=== PATIENT | male | born 1985 | race Caucasian/White ===

== ENCOUNTER 2018-06-19 04:06 | Emergency (ER) | payer SELFPAY ==
[~2018-06-19] VITALS: Ht 175.3 cm; Wt 77.1 kg
--- NOTE | 2018-06-19 04:06 | NUR ---
32/M BIBA W C/O PANIC ATTACK X 1HOUR SLABBER. STATES " I USUALLY TAKE KLONOPIN BUT I DIDNT HAVE ANY AT MY MOM'S HOUSE". GCS15, AOX4. DENIES N/V/D; SKIN IS PINK/WARM/DRY; AAOX4 WITH EVEN AND STEADY GAIT; LUNGS CLEAR BL; ; PT DENIES ANY FEVER, CP, SOB, OR COUGH AT THIS TIME; PATIENT STATES PAIN OF 0/10 AT THIS TIME; VSS; PATIENT POSITIONED FOR COMFORT; HOB ELEVATED; BEDRAILS UP X2; BED DOWN. ER MD MADE AWARE OF PT STATUS. PHM: PANIC ATTACKS
[2018-06-19 04:10] VITALS: BP 131/69
--- NOTE | 2018-06-19 04:19 | NUR ---
Dr. Amber Baugh evaluating patient at bedside.
[2018-06-19] MEDS ORDERED: NACL 0.9% 1,000 ML IV STA ×2 (04:22→05:43)
[2018-06-19] MEDS ORDERED: LORazepam 2 MG/ML VIAL IVP ONE (04:25)
[2018-06-19] MEDS ORDERED: ONDANSETRON 4 MG/2 ML VIAL IVP ONE (04:25)
--- NOTE | 2018-06-19 06:20 | NUR ---
dPatient discharged with v/s stable. Written and verbal after care instructions given and explained. Patient alert, oriented and verbalized understanding of instructions. Ambulatory with steady gait. All questions addressed prior to discharge. ID band removed. Patient advised to follow up with PMD. Rx of clonazepam, zofran odt given. Patient educated on indication of medication including possible reaction and side effects. Opportunity to ask questions provided and answered. IV removed, catheter intact and site benign. Applied folded 4x4 gauze and tape to stop bleeding.
[2018-06-19 06:23] VITALS: BP 112/78
== END 2018-06-19 06:20 | disposition home or self-care (01) ==
LOC: EDBD 04:06 → MED 04:06
DX: F41.9 Anxiety disorder, unspecified (principal)
CPT/HCPCS: 96374; 96375; 99284; J2060; J2405; J7030

== ENCOUNTER 2018-09-12 21:50 | Emergency (ER) | payer BC ==
[~2018-09-12] VITALS: Ht 170.2 cm; Wt 79.4 kg
[2018-09-12 21:56] VITALS: BP 135/93
--- NOTE | 2018-09-12 21:56 | NUR ---
PT C/O ANXIETY, DEPRESSION, POOR APPETITE, HEADACHE 10 AND N/V X 3 WEEKS WITH GENERAL ABD PAIN. DENIES SUICIDAL IDEATION AT THIS TIME. HX---HIV, ANXIETY MEDS--- KLONOPIN, TIUMEC (NONCOMPLIANT)
--- NOTE | 2018-09-12 21:56 | NUR ---
pt ambulated to bed 6 for bedside triage
--- NOTE | 2018-09-12 22:00 | NUR ---
EDMD EVALUATING PT AT BEDSIDE
[2018-09-12] MEDS ORDERED: KETOROLAC 30 MG/ML VIAL IVP ONE (22:05)
[2018-09-12] MEDS ORDERED: NACL 0.9% 1,000 ML IV ONE (22:05)
[2018-09-12] MEDS ORDERED: ONDANSETRON 4 MG/2 ML VIAL IVP ONE (22:05)
[2018-09-12 22:41] LABS: BASOPHILS % (AUTO) 0.4 % (0.0-2.0); EOSINOPHILS # (AUTO) 0.2 K/uL (0-0.4); EOSINOPHILS % (AUTO) 2.6 % (0.0-4.0); HEMATOCRIT 43.6 % (36-52); HEMOGLOBIN 14.7 g/dL (12.0-18.0); LYMPHOCYTES # (AUTO) 2.4 K/uL (2.0-11.5); LYMPHOCYTES % (AUTO) 33.8 % (20.5-51.1); MEAN CORPUSCULAR HEMOGLOBIN 33 pg (27-31); MEAN CORPUSCULAR HGB CONC 34 g/dL (33-37); MEAN CORPUSCULAR VOLUME 99.5 fL (80-94); MONOCYTES # (AUTO) 0.9 K/uL (0.8-1.0); NEUTROPHILS # (AUTO) 3.5 K/uL (1.8-7.7); NEUTROPHILS % (AUTO) 50.2 % (42.2-75.2); PLATELET COUNT (AUTO) 193 K/uL (140-450); RED BLOOD CELL COUNT(AUTO) 4.39 MIL/uL (4.20-6.10); WHITE BLOOD COUNT (AUTO) 6.9 K/uL (4.8-10.8)
[2018-09-12] MEDS ORDERED: LORazepam 1 MG TAB PO ONE (22:45)
--- NOTE | 2018-09-12 22:45 | NUR ---
PT DEMANDING ATIVAN, EDMD AWARE
[2018-09-12 22:52] LABS: ANION GAP 10.2 (8-16); CARBON DIOXIDE 28.6 mmol/L (21-32); CREATININE 1.1 mg/dL (0.7-1.3); POTASSIUM 3.8 mmol/L (3.5-5.1)
--- NOTE | 2018-09-12 22:54 | NUR ---
PATIENT REFUSING TO TAKE ATIVAN PO, PT WANTS IV. ER MD MADE AWARE.
--- NOTE | 2018-09-12 22:56 | NUR ---
PT REFUSED TO SIGN AMA. DEEPIKA HEATH MADE AWARE.
--- NOTE | 2018-09-12 22:57 | NUR ---
PT ELOPED FROM ER AT THIS TIME
[2018-09-12 22:58] LABS: ALBUMIN 3.8 g/dL (3.4-5.0); TOTAL BILIRUBIN 0.3 mg/dL (0.0-1.0)
== END 2018-09-12 22:57 | disposition left against medical advice (07) ==
LOC: MED 21:50
DX: F41.9 Anxiety disorder, unspecified (principal); R11.2 Nausea with vomiting, unspecified; Z72.89 Other problems related to lifestyle; F32.9 Major depressive disorder, single episode, unspecified; R10.84 Generalized abdominal pain
CPT/HCPCS: 36415; 80053; 81002; 83690; 85025; 96361; 96374; 96375; 99284; J1885; J2405; J7030; 99283

== ENCOUNTER 2020-09-25 13:07 | Emergency (ER) | payer BC ==
[~2020-09-25] VITALS: Ht 175.3 cm; Wt 68.5 kg
[2020-09-25 13:14] VITALS: BP 126/76
--- NOTE | 2020-09-25 13:24 | NUR ---
35 YEAR OLD MALE COMPLAINS OF VOMITING, LIGHTHEADED, DIZZINESS X 20 MINUTES. PATIENT DENIES ABDOMINAL PAIN, DIARRHEA, NAUSEA. VOMITING IS SELF-INDUCED; PATIENT BELIEVES IT WILL MAKE HIM FEEL BETTER. WASTE IN EMESIS BAG IS CLEAR. HYPOACTIVE BOWEL SOUNDS HEARD THROUGHOUT. LAST BM TODAY PER PATIENT; NORMAL CONSISTENCY AND COLOR. PATIENT STATED NOT HAVEING EATEN SINCE YESTERDAY. SKIN SOMEWHAT PALE, DIAPHORETIC. ON MONITOR. AO4, SKIN WARM AND MOIST, BREATHING EVEN AND UNLABORED. BED IN LOWEST POSITION, LOCKED, X1 SIDERAIL UP. PMH - ANOREXIA, BULIMIA, HIV NKA
--- NOTE | 2020-09-25 13:30 | NUR ---
BLOOD SUGAR 115
[2020-09-25] MEDS ORDERED: ONDANSETRON 4 MG/2 ML VIAL IVP ONE (13:45)
[2020-09-25] MEDS ORDERED: METOCLOPRAMIDE 10 MG/2 ML INJ VIAL IVP ONE (13:45)
[2020-09-25] MEDS ORDERED: diphenhydrAMINE 50 MG/ML VIAL IVP ONE (13:45)
[2020-09-25 14:12] LABS: BASOPHILS # (AUTO) 0.1 K/uL (0.00-0.22); BASOPHILS % (AUTO) 1.5 % (0.0-2.0); EOSINOPHILS # (AUTO) 0.3 K/uL (0-0.4); EOSINOPHILS % (AUTO) 3.9 % (0.0-4.0); HEMATOCRIT 38.5 % (36-52); HEMOGLOBIN 12.7 g/dL (12.0-18.0); LYMPHOCYTES # (AUTO) 1.1 K/uL (2.0-11.5); LYMPHOCYTES % (AUTO) 13.3 % (20.5-51.1); MEAN CORPUSCULAR HEMOGLOBIN 35 pg (27-31); MEAN CORPUSCULAR HGB CONC 33 g/dL (33-37); MEAN CORPUSCULAR VOLUME 104.3 fL (80-94); MONOCYTES # (AUTO) 0.3 K/uL (0.8-1.0); MONOCYTES % (AUTO) 3.3 % (1.7-9.3); NEUTROPHILS # (AUTO) 6.7 K/uL (1.8-7.7); PLATELET COUNT (AUTO) 206 K/uL (140-450); RED BLOOD CELL COUNT(AUTO) 3.69 MIL/uL (4.20-6.10); RED CELL DISTRIBUTION WIDTH 13.7 % (11.6-13.7); WHITE BLOOD COUNT (AUTO) 8.6 K/uL (4.8-10.8)
--- NOTE | 2020-09-25 14:20 | NUR ---
PT TAKEN BY RADIOLOGY VIA ANDREW
--- NOTE | 2020-09-25 14:27 | NUR ---
PT BACK INTO ROOM FROM RADIOLOGY. IN BED, CALM, EYES OPEN, BREATHING EVEN AND UNLABORED. NO DISTRESS NOTED. WILL CONTINUE TO MONITOR.
[2020-09-25 14:31] LABS: ALBUMIN 4.3 g/dL (3.4-5.0); ANION GAP 13.7 (8-16); CARBON DIOXIDE 26.6 mmol/L (21-32); CREATININE 1.1 mg/dL (0.6-1.3); POTASSIUM 3.3 mmol/L (3.5-5.1); TOTAL BILIRUBIN 0.2 mg/dL (0.0-1.0)
[2020-09-25 15:05] VITALS: BP 126/76
--- NOTE | 2020-09-25 15:06 | NUR ---
Patient discharged with v/s stable. Written and verbal after care instructions ABOUT NAUSEA AND VOMITING given and explained. Patient alert, oriented and verbalized understanding of instructions. Ambulatory with steady gait. All questions addressed prior to discharge. ID band removed. Patient advised to follow up with PMD. Rx of REGLAN AND DIPHENHYDRAMINE given. Patient educated on indication of medication including possible reaction and side effects. Opportunity to ask questions provided and answered.
== END 2020-09-25 15:06 | disposition home or self-care (01) ==
LOC: MED 13:07
DX: R11.2 Nausea with vomiting, unspecified (principal); R42 Dizziness and giddiness; R63.0 Anorexia
CPT/HCPCS: 36415; 70450; 80053; 85025; 96374; 96375; 99284; J1200; J2405; J2765